=== PATIENT | female | born 1950 | race Caucasian/White ===

== ENCOUNTER → 2016-07-25 | Outpatient (CLI) | payer BC | LOC: MC.RAD 11:20 | DX: Z12.31 Encounter for screening mammogram for malignant neoplasm of breast (principal); N63 Unspecified lump in breast ==

== ENCOUNTER → 2016-07-28 | Outpatient (CLI) | payer BC | LOC: MC.RAD 09:54 | DX: D24.1 Benign neoplasm of right breast (principal) ==

== ENCOUNTER 2017-07-25 11:58 | Day surgery (SDC) | payer BC ==
[~2017-07-25] VITALS: Ht 149.9 cm; Wt 56.4 kg
[2017-07-25] MEDS ORDERED: PROZAC 20MG20 MG PO (12:45)
[2017-07-25] MEDS ORDERED: EVISTA 60MG60 MG/TAB PO (12:46)
[2017-07-25] MEDS ORDERED: PRINIVIL10 MG PO (12:46)
[2017-07-25] MEDS ORDERED: METROGEL GEL45 GM TP (12:47)
[2017-07-25] MEDS ORDERED: D-2000 90 MG-201 TAB PO (12:48)
[2017-07-25 13:08] VITALS: BP 146/93; PULSE 62; TEMP 99
[2017-07-25 14:40] VITALS: BP 148/77; PULSE 57; TEMP 98
[2017-07-25 14:55] VITALS: BP 138/78; PULSE 52
[2017-07-25 15:10] VITALS: BP 152/87; PULSE 50
== END 2017-07-25 15:34 | disposition home or self-care (01) ==
LOC: SDCO 11:58
DX: Z12.11 Encounter for screening for malignant neoplasm of colon (principal); K64.0 First degree hemorrhoids; I10 Essential (primary) hypertension
CPT/HCPCS: OP; J2250; J3010; J7030

== ENCOUNTER → 2017-08-08 | Outpatient (CLI) | payer BC ==
[~2017-08-08] MED LIST: D-2000 90 MG-201 TAB PO; EVISTA 60MG60 MG/TAB PO; METROGEL GEL45 GM TP; PRINIVIL10 MG PO; PROZAC 20MG20 MG PO
== END ==
LOC: MC.RAD 13:36
DX: Z12.31 Encounter for screening mammogram for malignant neoplasm of breast (principal)